=== PATIENT | male | born 1995 | race Caucasian/White ===

== ENCOUNTER 2024-04-30 02:24 | Emergency (ER) | payer BC ==
[2024-04-30] MEDS ORDERED: DUONEB 0.5-3 MG/3 ml Neb IH ONE (02:52)
[2024-04-30] MEDS: DUONEB 0.5-3 MG/3 ml Neb IH ONE (02:55)
--- NOTE | 2024-04-30 03:27 | ERPHSYRPT ---
- History of Present Illness Time Seen by Provider: 04/30/24 03:17 Source: patient Exam Limitations: no limitations Patient Subjective Stated Complaint: pt states for the past week he has had mid chest pain. rates 6/10 at this time. states worse with deep breath and has in termittent cough. Triage Nursing Assessment: pt alert and oriented, answers questions approp. pt ambulates to room with steady gait noted. skin warm and dry. respirations nonl abored. lungs cta bilat. heart rate 84, sinus rhythm on monitor. Physician History: 28-year-old male with history of vaping presented in the ER with complains of cough congestion for 1 week with progressive worsening. Patient reports having bouts of coughing productive of yellowish-green sputum moderate in amount. Reports chest pain all over because of repeated coughing. Hurts to take a deep breath. No fever or chills reported. Shortness of breath during episode of coughing. No dyspnea on exertion. Allergies/Adverse Reactions: No Known Drug Allergies Allergy (Verified 04/30/24 02:49) Hx Tetanus, Diphtheria Vaccination/Date Given: No Hx Influenza Vaccination/Date Given: No Hx Pneumococcal Vaccination/Date Given: No Travel Risk - International Travel Have you traveled outside of the country in past 3 weeks: No - Emerging Infectious Disease Symptoms: Cough: New Onset, Headaches/Body Aches/, Shortness of Breath - Review of Systems Constitutional: No Symptoms Eyes: No Symptoms Ears, Nose, & Throat: No Symptoms Respiratory: Cough, Dyspnea Cardiac: Chest Pain Abdominal/Gastrointestinal: No Symptoms Genitourinary Symptoms: No Symptoms Musculoskeletal: No Symptoms Skin: No Symptoms Neurological: No Symptoms Psychological: No Symptoms Endocrine: No Symptoms Hematologic/Lymphatic: No Symptoms Immunological/Allergic: No Symptoms - Past Medical History Pertinent Past Medical History: No - Past Surgical History Past Surgical History: No - Social History Smoking Status: Never smoker Exposure to second hand smoke: Yes Drug Use: none - Social Determinants of Health Will the patient participate in the screening: Declined to provide - Nursing Vital Signs Nursing Vital Signs: Initial Vital Signs Pulse Rate 80 04/30/24 02:25 Respiratory Rate 18 04/30/24 02:25 O2 Sat by Pulse Oximetry 97 04/30/24 02:25 Pain Scale Pain Intensity 5 - Physical Exam General Appearance: no apparent distress, alert Eye Exam: PERRL/EOMI Ears, Nose, Throat Exam: hearing grossly normal, pharyngeal erythema Neck Exam: normal inspection, full range of motion Respiratory Exam: rhonchi, No crackles/rales Cardiovascular/Chest Exam: normal heart sounds, regular rate/rhythm Abdominal/Gastrointestinal Exam: soft, normal bowel sounds, No tenderness Extremity Exam: non-tender, normal range of motion Neurologic Exam: alert, oriented x 3, cooperative Skin Exam: normal color SpO2 Interpretation: normal SpO2: 97 O2 Delivery: Room Air - Course EKG Interpreted by Me: RATE ([id number]), Sinus Rhythm, NORMAL AXIS, NORMAL INTERVALS, NORMAL QRS Ordered Tests: Active Orders 24 hr Category Date Time Status CHEST 1 VIEW (PORTABLE) Stat Exams 04/30/24 02:46 Taken BLOOD CULTURE Stat Lab 04/30/24 03:20 Ordered CBC W DIFF Stat Lab 04/30/24 03:00 Received CMP Stat Lab 04/30/24 03:00 Received D-DIMER QUANTITATIVE Stat Lab 04/30/24 03:00 Received Lactic Acid Stat Lab 04/30/24 03:19 Completed NT PRO BNPII Stat Lab 04/30/24 03:00 Received PROCALCITONIN Stat Lab 04/30/24 03:00 Received TROPONIN Q4H Lab 04/30/24 03:00 Received TROPONIN Q4H Lab 04/30/24 07:30 Ordered TROPONIN Q4H Lab 04/30/24 11:30 Ordered Respiratory Therapy Assessment DAILY RT 04/30/24 02:57 Active Medication Summary Discontinued Medications Generic Name Dose Route Start Last Admin Trade Name Freq PRN Reason Stop Dose Admin Albuterol/Ipratropium 3 ml 04/30/24 02:47 04/30/24 02:55 Ipratropium/Albuterol Sulfate 3 Ml Ampul.Neb IH 04/30/24 02:48 3 ml STAT ONE Administration Albuterol/Ipratropium Confirm 04/30/24 02:52 Ipratropium/Albuterol Sulfate 3 Ml Ampul.Neb Administered 04/30/24 02:53 Dose 3 ml IH .STK-MED ONE Methylprednisolone Sodium 0 mg 04/30/24 03:19 Succinate 125 mg/ Sterile IV 04/30/24 03:20 Water 2 ml STAT ONE Methylprednisolone Sodium Succinate Confirm 04/30/24 03:38 Methylprednis Sod Succ 125 Mg/2 Ml Vial Administered 04/30/24 03:39 Dose 125 mg .ROUTE .STK-MED ONE Sterile Water Confirm 04/30/24 03:38 Water For Injection,Sterile 10 Ml Vial Administered 04/30/24 03:39 Dose 10 ml IJ .STK-MED ONE Lab/Rad Data: Laboratory Results 04/30/24 Range/Units 03:19 Lactic Acid 1.9 (0.4-2.0) - Progress Progress Note: 04/30/24 04:43 Given Solu-Medrol and DuoNeb, feeling better on reevaluation EKG is normal sinus rhythm with no acute ischemic changes Chest x-ray showed some airspace disease on the right side, I believe patient has bronchitis, started on doxycycline - Departure Clinical Impression: Acute bronchitis Condition: Stable Critical Care Time: No Referrals: DOCTOR,NO FAMILY [Primary Care Provider] - Follow up with PCP 1 day Instructions: Bronchitis, Adult ED Additional Instructions: Do not smoke/vape. Follow-up with primary care for reevaluation. Return to ER for worsening cough or if having difficulty breathing etc. Prescriptions: Prednisone 20 mg [Deltasone 20 mg] 60 mg PO DAILY 5 Days #15 tablet Albuterol 8 gm Mdi Hfa [Ventolin Hfa MDI] 8 gm IH Q4H #1 inh Doxycycline Hyclate 100 mg [Vibramycin 100 MG] 100 mg PO BID #14 tab
[2024-04-30 03:36] VITALS: RESP 18
[2024-04-30] MEDS ORDERED: solu-MEDROL ONE (03:38)
[2024-04-30] MEDS ORDERED: Sterile H2O 10 ml IJ ONE (03:38)
[2024-04-30 03:41] LABS: ALBUMIN 4.5 g/dL (3.5-5.0); ANION GAP 12.6 MEQ/L (5-15); BILIRUBIN,TOTAL 0.7 mg/dL (0.2-1.3); Calcium 9.1 mg/dL (8.4-10.2); Creatinine 1 0.99 mg/dL (0.66-1.25); EST GLOMERULAR FILTRATION RATE 105.1 ML/MIN; Potassium 4.1 mmol/L (3.5-5.1); Total Protein 7.6 g/dL (6.3-8.2)
[2024-04-30] MEDS: solu-MEDROL 125 MG, Sterile H2O 10 ml 2 ML IV ONE (03:42)
[2024-04-30] MEDS ORDERED: Vibramycin 100 MG ONE (03:45)
[2024-04-30 03:46] LABS: Absolute Neutrophil Ct (ANC) 4.13 x10^3/uL (1.4-6.9); BASOPHIL % 0.6 % (0.0-0.4); Basophil (Absolute #) 0.05 x10^3/uL (0-0.4); Eosinophil % 11.7 % (0.00-5.0); Eosinophil (Absolute #) 0.97 x10^3/uL (0-0.5); Hematocrit 45.6 % (42-50); Hemoglobin 15.4 g/dL (12.5-18.0); IMMATURE GRAN # 0.02 x10^3u/L (0.00-0.03); IMMATURE GRAN % 0.2 % (0.00-0.4); Lymphocytes % 30.1 % (24.0-44.0); Mean Cell Volume 89.4 fL (78-100); Mean Corpuscular Hemoglobin 30.2 pg (26-32); Mean Corpuscular Hgb Concent. 33.8 g/dL (32-36); Monocyte (Absolute #) 0.64 x10^3/uL (0.0-1.3); Monocytes % 7.7 % (0.0-12.0); Neutrophil % 49.7 % (36.0-66.0); Platelet Count 250 x10^3/uL (150-450); Red Cell Distribution Width 12.1 % (11.5-14.0); White Blood Count 8.3 x10^3/uL (4.0-10.5)
[2024-04-30] MEDS: Vibramycin 100 MG PO ONE (03:46)
[2024-04-30 04:12] VITALS: BP 145/84; PULSE 81; O2SAT 99
--- NOTE | 2024-04-30 08:10 | XRAY ---
Indication: Chest pain. Cough. Comparison: None Portable apical lordotic chest demonstrates normal heart, lungs, and bony thorax.
== END 2024-04-30 04:09 | disposition home or self-care (01) ==
LOC: ED 02:24
DX: J20.9 Acute bronchitis, unspecified (principal); R05.1 Acute cough; Z79.52 Long term (current) use of systemic steroids
CPT/HCPCS: 36415; 71045; 80053; 83605; 83880; 84145; 84484; 85025; 85379; 87040; 94640; 96374; 99283; J2919; A9270-GY